=== PATIENT | male | born 1955 | race Two or more races ===

== ENCOUNTER 2017-11-26 23:52 | Emergency (ER) | payer SELFPAY ==
[~2017-11-26] VITALS: Ht 162.6 cm; Wt 61.2 kg
[2017-11-27 00:10] VITALS: BP 144/90
--- NOTE | 2017-11-27 02:03 | NUR ---
CALLED PT FROM WAITING ROOM, PT STATES I WANT TO SLEEP RIGHT NOW. RISK AND BENEFITS EXPLAINED X3. PT REFUSED TO BE SEEN BY MD AT THIS TIME.
--- NOTE | 2017-11-27 02:45 | NUR ---
PT REFUSED TO BE SEEN BY MD. RESTING IN WAITING ROOM.
--- NOTE | 2017-11-27 03:25 | NUR ---
PT REFUSED TO BE SEEN BY MD. RESTING IN WAITING ROOM.
== END 2017-11-27 04:42 | disposition left against medical advice (07) ==
LOC: ER 23:54
DX: F10.229 Alcohol dependence with intoxication, unspecified (principal); Y90.9 Presence of alcohol in blood, level not specified; Z59.0 Homelessness
CPT/HCPCS: 99283; A4606; Z7610

== ENCOUNTER 2019-05-13 21:19 | Inpatient (IN) | payer MEDICAID ==
[~2019-05-13] VITALS: Ht 165.1 cm; Wt 55.8 kg
--- NOTE | 2019-05-13 21:25 | NUR ---
BIB EMS FROM STREET C/O ABD PAIN WITH N/V BLOOD X2 HRS PRESS TENDER SMOKE SIGNAL.
[2019-05-13] MEDS ORDERED: IV NS 0.9% 1,000 ML BAG IV ONE (21:30)
[2019-05-13 21:44] LABS: BASOPHILS % (AUTO) 0.7 % (0.0-2.0); HEMATOCRIT 26 % (39-51); HEMOGLOBIN 7.7 g/dL (13.5-17.5); LYMPHOCYTES # (AUTO) 0.8 /CMM (0.8-4.8); LYMPHOCYTES % (AUTO) 19.2 % (20.0-44.0); MEAN CORPUSCULAR HGB CONC 30 g/dl (31.0-36.0); MEAN CORPUSCULAR VOLUME 67 fL (80-96); MONOCYTES # (AUTO) 0.7 /CMM (0.1-1.30); MONOCYTES % (AUTO) 15.4 % (2.0-12.0); NEUTROPHILS # (AUTO) 2.8 /CMM (1.8-8.9); NEUTROPHILS % (AUTO) 62.7 % (43.0-81.0); PLATELET COUNT (AUTO) 243 /CMM (150-450); WHITE BLOOD COUNT (AUTO) 4.4 K/uL (4.3-11.0)
[2019-05-13 21:51] LABS: CALCIUM, SERUM 8.9 mg/dL (8.5-10.1); CARBON DIOXIDE 25 mmol/L (21-32); CHLORIDE 104 mmol/L (98-107); GLUCOSE 127 mg/dL (74-106); POTASSIUM 3.8 mmol/L (3.5-5.1); SODIUM SERUM 139 mmol/L (136-145); UREA NITROGEN, BLOOD 29 mg/dL (7-18)
[2019-05-13 21:56] LABS: ALANINE AMINOTRANSFERASE 36 U/L (12-78); ALBUMIN 3.7 g/dL (3.4-5.0); ALKALINE PHOSPHATASE 85 U/L (46-116); ASPARTATE AMINOTRANSFERASE 22 U/L (15-37); BILIRUBIN,TOTAL 0.3 mg/dL (0.2-1.0); LIPASE 660 U/L (73-393)
[2019-05-13] MEDS ORDERED: PANTOPRAZOLE 80 MG in IV NS 0.9% 500 ML IV ONE (22:30)
[2019-05-13] MEDS ORDERED: PANTOPRAZOLE 40 MG VIAL ONE (22:30)
[2019-05-13 22:40] LABS: APPEARANCE,URINE Clear (CLEAR); BILIRUBIN,URINE Negative (NEGATIVE); BLOOD, URINE Negative Ery/uL (NEGATIVE); COLOR,URINE Yellow (YELLOW); KETONES,URINE Negative (NEGATIVE); LEUKOCYTE ESTERASE ,URINE Negative (NEGATIVE); NITRITE, URINE Negative (NEGATIVE); PH,URINE 6.5 (5.0-8.0); PROTEIN,URINE Negative (NEGATIVE); UGLUCOSE Negative (NEGATIVE); UROBILINOGEN,URINE 0.2 EU/dL (0.2)
--- NOTE | 2019-05-13 22:55 | NUR ---
PT REPORTED HE IS NOT HAVING ANY MEDICAL PROBLEM AND DOT TAKING ANY HOME MEDS
--- NOTE | 2019-05-13 23:05 | NUR ---
[address] [facility]
--- NOTE | 2019-05-13 23:30 | NUR ---
report given to navid on third floor
[2019-05-13 23:35] VITALS: BP 116/76
--- NOTE | 2019-05-13 23:40 | NUR ---
METALLURGICAL LAB TECHNICIAN NOTES Received patient from ER via gurney, with Protonix IV at 52ml/hr. Admitted to [facility] 327-2 due to Acute Pancreatitis, GIB under the service of Dr. Mcfarland. Admission routine done. Initial skin assessment done, photo taken and documented. Admission routine done. Kept on bed clean, dry and comfortable. Call light within easy reach. On fall and aspiration precautions. Will continue to monitor accordingly. Addendum: 05/14/19 at 0320 by MEGHA ZEPEDA RN Patient admitted under the service of Dr. Gilliam.
--- NOTE | 2019-05-13 23:45 | NUR ---
PT WAS TRANSFERRED TO [facility] IN STABLE CONDITION
[2019-05-14] VITALS (10 sets, daily range): BP systolic 116–162; BP diastolic 64–93
[2019-05-14] MEDS ORDERED: Z GUARD REMEDY 2 OZ OINT TP PRN (00:30)
[2019-05-14] MEDS ORDERED: ONDANSETRON HCL/PF 4 MG/2 ML VIAL IVP PRN (00:30)
[2019-05-14] MEDS ORDERED: MAG HYDROX/AL HYDROX/SIMETH 30 ML UDC PO PRN (00:30)
[2019-05-14] MEDS ORDERED: MAGNESIUM HYDROXIDE 30 ML UDC PO PRN (00:30)
[2019-05-14] MEDS: IV NS 0.9% 1,000 ML IV PRN ×2 (00:39→12:33)
--- NOTE | 2019-05-14 02:20 | NUR ---
RN NOTES Patient for 1 unit PRBC transfusion as order by ER Dr. Cameron. Patient positive for antibodies. Per lab, blood is to be ordered from [place]. Consent signed by the patient.
[2019-05-14] MEDS: MORPHINE SULFATE INJ 2 MG/ML DISP.SYRIN IV PRN ×2 (02:37→12:26)
--- NOTE | 2019-05-14 05:58 | NUR ---
RN NOTES Initial VS taken and recorded. Patient denies any discomfort at this time. Instructed patient on the possible s/sx of blood transfusions reactions, patient verbalized understanding. Initiated BT 1 unit PRBC, verified with co RN Bull. Infuse at 15ml/hr, RN at bedside monitoring the patient.
--- NOTE | 2019-05-14 06:13 | NUR ---
RN NOTES Rechecked VS and recorded. Patient denies any discomfort at this time. No s/sx of discomfort/distress noted. Increased blood transfusion rate accordingly to finish within 4 hrs. Will continue to monitor accordingly.
--- NOTE | 2019-05-14 06:52 | NUR ---
MS RN CLOSING NOTES Patient asleep, easily awaken. On RA, no SOB/respiratory distress noted at this time. With ongoing BT transfusion, patient denies any discomfort at this time; monitored accordingly. No N/V noted within the patient, patient kept on NPO as ordered. All due meds given as ordered. All nursing needs attended. Kept on bed clean, dry and comfortable. On fall and aspiration precautions. Call light within easy reach. Endorsed to the next shift.
[2019-05-14 07:09] LABS: LIPASE 175 U/L (73-393)
[2019-05-14 07:17] LABS: IRON, SERUM 10 ug/dl (50-175); TOTAL IRON BINDING CAPACITY 392 ug/dl (250-450)
--- NOTE | 2019-05-14 08:00 | NUR ---
MS RN AM NOTES Patient asleep, easily awaken. On RA, no SOB/respiratory distress noted at this time. With ongoing BT transfusion, patient denies any discomfort/distress at this time; monitored accordingly. No N/V noted within the patient, patient kept on NPO as ordered. Needs attended. Kept on bed clean, dry and comfortable. On fall and aspiration precautions. Call light within easy reach.
--- NOTE | 2019-05-14 09:50 | NUR ---
COMPLETED BLOOD TRANSFUSION OF 1 UNIT PRBC WITH NO ADVERSE REACTION. WITH STABLE V/S. BP 142/92 HR 62 RR 18 T98.8 O2 SAT 98%. WILL CONTINUE TO MONITOR.
--- NOTE | 2019-05-14 11:00 | NUR ---
LAB CALLED REPORTING HGB/HCT 6.11/05.EXPLAINED TO THE LAB THAT THIS HGB/HCT CRITICAL VALUE RESULT IS NOT ACCURATE BECAUSE BLOOD TRANSFUSION JUST STARTED AT 0600 THIS MORNING. INSTRUCTED LAB TO REDRAW IT.PLACED A NEW ORDER OF HGB/HCT TO REDRAW HGB/HCT.
[2019-05-14] MEDS ORDERED: OCTREOTIDE 500 MCG in IV NS 0.9% 99 ML IV PRN (11:30)
[2019-05-14 11:35] LABS: BASOPHILS % (AUTO) 0.9 % (0.0-2.0); EOSINOPHILS % (AUTO) 2.4 % (0.0-6.0); HEMATOCRIT 24 % (39-51); LYMPHOCYTES # (AUTO) 1.1 /CMM (0.8-4.8); LYMPHOCYTES % (AUTO) 28.4 % (20.0-44.0); MEAN CORPUSCULAR HGB CONC 29 g/dl (31.0-36.0); MEAN CORPUSCULAR VOLUME 66 fL (80-96); MONOCYTES # (AUTO) 0.7 /CMM (0.1-1.30); MONOCYTES % (AUTO) 18.3 % (2.0-12.0); NEUTROPHILS # (AUTO) 1.9 /CMM (1.8-8.9); PLATELET COUNT (AUTO) 212 /CMM (150-450); RED BLOOD CELL COUNT(AUTO) 3.56 MIL/uL (4.5-6.0); WHITE BLOOD COUNT (AUTO) 3.8 K/uL (4.3-11.0)
[2019-05-14 11:59] LABS: HEMOGLOBIN 6.9 g/dL (13.5-17.5)
--- NOTE | 2019-05-14 12:29 | NUR ---
FERLECITT IV CAN BE ADMINISTERED EARLIER THAN 1400 PER PHARMACY.
[2019-05-14 12:50] LABS: LYMPHOCYTES % (MANUAL) 35 % (16-48); MONOCYTES % (MANUAL) 5 % (0-11.0); NEUTROPHILS % (MANUAL) 48 (42-76); REACTIVE LYMPHOCYTES 12 % (0-0)
--- NOTE | 2019-05-14 13:15 | NUR ---
PT'S LATEST HGB/HCT(REDRAW) .
[2019-05-14 13:25] LABS: HEMOGLOBIN 8.5 g/dL (13.5-17.5)
--- NOTE | 2019-05-14 13:48 | NUR ---
SOCIAL SERVICE ASSESSMENT: SW met with pt at bedside after RN called SW to inform her pt was refusing treatment and wanted to leave AM. Pt states he is currently homeless and hasn't been given food and is hungry and that is why he wants to leave. SW explained that he has a test that will be done at 5:00pm on this present day and needs to be fasting. SW encouraged pt to accept treatment and cooperate. Pt stated that he will cooperate and accept placement. Pt states he has been homeless for 3 years and currently dwells on [address] and [address]. Pt states that he was kicked out of his 's house after she by her son and has been on the streets since then. He states he has 7 children whom he does not have any relationship with. Pt denies illicit drug use and also denies alcohol use. Pt states he is not an alcoholic although pt reported to MD that he drinks daily and also reported that on the day of his admission he had been drinking. Pt appears disheveled and unkempt with scratches on his face and dirt on his hands. Pt appears alert and oriented x3 and is hyperverbal. Pt denies suicidal/homicidal ideation and denies visual/auditory hallucinations. Pt states he wishes to return to his place of dwelling on [facility] [address] in [place]. MIKE placed homeless resources in the pts chart. Per RN, pt does not have a discharge order on this present day.
[2019-05-14] MEDS ORDERED: SOD FERRIC GLUC 125 MG in IV NS 0.9% 100 ML IV SCH (14:00)
[2019-05-14] MEDS ORDERED: hydrALAZINE HCL IV 20 MG VIAL IV PRN (16:00)
[2019-05-14] MEDS ORDERED: ANESTHESIA TRAY IN PYXIS 1 EA TRAY MC ONE (17:19)
--- NOTE | 2019-05-14 18:21 | NUR ---
PT JUST CAME BACK FROM [facility]. S/P EGD DX HIATAL HERNIA. WITH STABLE V/S. BP 125/63 HR 73 RR 18 T 97.8. O2 SAT 98%.RA. DENIES PAIN OR DISTRESS JUST WANTING TO EAT HIS DINNER.ORDERED REGULAR TRAY.
--- NOTE | 2019-05-14 19:45 | NUR ---
MS RN NOTES PATIENT IN BED, AWAKE, ALERT AND ORIENTED X 3. BREATHING EVEN AND UNLABORED ON ROOM AIR. SHOWS NO SIGNS OF ACUTE RESPIRATORY DISTRESS. NO ACUTE PAIN. IV ON RAC 18G RUNNING NS AT 125ML/HR. SHOWS NO SIGNS OF INFILTRATION, NO REDNESS. ITS CLEAN DRY AND INTACT. SAFETY PRECAUTIONS IN PLACE. BED IN LOWEST POSITIVE, LOCKED, AND CALL LIGHT KEPT WITHIN REACH.
[2019-05-15 06:28] LABS: BASOPHILS % (AUTO) 0.4 % (0.0-2.0); EOSINOPHILS % (AUTO) 2.1 % (0.0-6.0); HEMATOCRIT 31 % (39-51); HEMOGLOBIN 9.2 g/dL (13.5-17.5); LYMPHOCYTES # (AUTO) 0.9 /CMM (0.8-4.8); LYMPHOCYTES % (AUTO) 15.8 % (20.0-44.0); MEAN CORPUSCULAR HGB CONC 30 g/dl (31.0-36.0); MEAN CORPUSCULAR VOLUME 68 fL (80-96); MONOCYTES # (AUTO) 0.5 /CMM (0.1-1.30); MONOCYTES % (AUTO) 9.7 % (2.0-12.0); PLATELET COUNT (AUTO) 247 /CMM (150-450); RED BLOOD CELL COUNT(AUTO) 4.56 MIL/uL (4.5-6.0); WHITE BLOOD COUNT (AUTO) 5.6 K/uL (4.3-11.0)
--- NOTE | 2019-05-15 06:35 | NUR ---
MS RN NOTES PATIENT IN BED, SLEPT THROUGHOUT NIGHT, ALERT AND ORIENTED X 3. BREATHING EVEN AND UNLABORED ON ROOM AIR. SHOWS NO SIGNS OF ACUTE RESPIRATORY DISTRESS. NO ACUTE PAIN. IV ON RAC 18G RUNNING NS AT 125ML/HR. SHOWS NO SIGNS OF INFILTRATION, NO REDNESS. ITS CLEAN DRY AND INTACT. ALL DUE MEDICATIONS GIVEN. SAFETY PRECAUTIONS IN PLACE. BED IN LOWEST POSITION, LOCKED, AND CALL LIGHT KEPT WITHIN REACH. WILL ENDORSE TO ONCOMING NURSE.
[2019-05-15 07:04] LABS: ALBUMIN 3.2 g/dL (3.4-5.0); BILIRUBIN,TOTAL 0.3 mg/dL (0.2-1.0); CALCIUM, SERUM 8.4 mg/dL (8.5-10.1); CREATININE 0.9 mg/dL (0.6-1.3); MAGNESIUM 2.2 mg/dL (1.8-2.4); PHOSPHORUS 3.7 mg/dL (2.5-4.9); POTASSIUM 4.3 mmol/L (3.5-5.1); TOTAL PROTEIN, SERUM 7.4 g/dL (6.4-8.2)
[2019-05-15 08:00] VITALS: BP 134/81
--- NOTE | 2019-05-15 08:00 | NUR ---
MS PRAKASH AM NOTES Patient awake. On RA, no SOB/respiratory distress noted at this time. With ongoing BT transfusion, patient denies any discomfort/distress at this time; monitored accordingly. No N/V noted within the patient, patient kept on NPO as ordered. Needs attended. Kept on bed clean, dry and comfortable. On fall and aspiration precautions. Call light within easy reach. Addendum: 05/15/19 at 0936 by PETROS HOWE RN BT COMPLETED YESTERDAY
--- NOTE | 2019-05-15 12:00 | NUR ---
PT WAS SEEN BY CLEANER SIGNS YESTERDAY: Pt denies suicidal/homicidal ideation and denies visual/auditory hallucinations. Pt states he wishes to return to his place of dwelling on [address] in [place]. SW placed homeless resources in the pts chart.
--- NOTE | 2019-05-15 12:00 | NUR ---
PT REFUSED TO HAVE PHOTO OF HIS LEFT EYEBROW TAKEN.
--- NOTE | 2019-05-15 12:54 | NUR ---
PATIENT IS AAOX3, ADMITTED FOR GI BLEED. PATIENT IS HOMELESS. PATIENT WILL NEED TO BE SEEN BY MIKE TO GIVE RESOURCES. PATIENT IS INDEPENDENT WITH ADLS AND AMBULATION.PER MD PATIENT IS STABLE FOR DISCHARGE. PATIENT IS AWARE AND AGREEABLE WITH DC PLAN. PATIENT WILL RECEIVE A TAP CARD. NO OTHER DC NEEDS AT THIS TIME. Addendum: 05/15/19 at 1419 by PETROS HOWE RN PT WAS SEEN BY MATTHEW MCKEON YESTERDAY AND GAVE A COPY OF THE RESOURCES
[2019-05-15] MEDS ORDERED: ACETAMINOPHEN 325 MG TABLET PO PRN (14:00)
--- NOTE | 2019-05-15 14:30 | NUR ---
DISCHARGED PT HOME WITH STABLE V/S. IV H/L TO RT AC WITH NO BLEEDING OR SWELLING NOTED ON THE SITE.PT REFUSED PHOTO OF HIS LT FOREHEAD ABRASION TO BE TAKEN.DENIES ANY PAIN OR DISTRESS.SIGNED THE HOMELESS WAIVER FORM/.PT WANTS TO RETURN TO THE PLACE WHERE HE USED TO STAY. PT WAS ALL DRESSED UP FROM -HEAD TO TOE COMFORTABLY WITH SHOES. Addendum: 05/15/19 at 1436 by PETROS HOWE RN PROVIDED TAP CARD FOR HIS RIDE.PT HAS A LOT OF DEMANDS LIKE DOUBLE PORTION FOOD TRAY AND BOTTLE OF MVI PRIOR TO BEING DC.
== END 2019-05-15 14:30 | disposition home or self-care (01) | DRG 197 ==
LOC: ER 21:25 → MED 23:18 → MEDSG2 05-14 13:53
PROVIDERS: ADMIT Internal Medicine; ATTEND Internal Medicine
PROC: 30233P1 Transfusion of Nonautologous Frozen Red Cells into Peripheral Vein, Percutaneous Approach (ICD-10-PCS; principal; 2019-05-14)
PROC: 0W3P8ZZ Control Bleeding in Gastrointestinal Tract, Via Natural or Artificial Opening Endoscopic (ICD-10-PCS; principal; 2019-05-14)
DX: Q27.33 Arteriovenous malformation of digestive system vessel (principal); N17.0 Acute kidney failure with tubular necrosis; K85.90 Acute pancreatitis without necrosis or infection, unspecified; K74.60 Unspecified cirrhosis of liver; F10.10 Alcohol abuse, uncomplicated; K44.9 Diaphragmatic hernia without obstruction or gangrene; D62 Acute posthemorrhagic anemia
CPT/HCPCS: 36415; 71045-TC; 73130-TC; 76700-TC; 80048-TC; 80053-TC; 80061-TC; 80076-TC; 81000-TC; 83540-TC; 83690-TC; 83735-TC; 84100-TC; 84484-TC; 85025-TC; 85027-TC; 85730-TC; 86850-TC; 86921-TC; 87081-TC; 97116-TC; 97530-TC; C9113; G0378; J2270; J2354; J2916; J7030; J7040; P9016-BL

== ENCOUNTER 2020-05-14 17:26 | Inpatient (IN) | payer MEDICAID ==
[~2020-05-14] VITALS: Ht 162.6 cm; Wt 54.9 kg
--- NOTE | 2020-05-14 19:27 | NUR ---
SEGMENT PRODUCER NOTE PT 56 YEARS OLD MALE CAME VIA GURNEY TO ROOM FROM [facility]. REPORT RECEIVED FROM AMBULANCE PERSONAL. PT IS A/0 X 4 TURKMEN SPEAKING. NO SOB, NO DISTRESS OR DISCOMFORT NOTED. DENIES PAIN. ON TELE SR HR 84. SKIN INTACT. PT ABLE AMBULATE TO BATHROOM WITH A STEADY GAIT. LFA #20 G AND RAC #20 G SL INTACT AND PATENT. ORIENTED THE PT TO HIS ROOM. DR DANA VASQUEZ FOR ADMITTING ORDERS. SIDE RAILS UP X 2 AND CALL LIGHT WITHIN REACH. VSS. CONTINUE TO MONITOR HIM. Addendum: 05/14/20 at 2031 by JARRETT MOTT RN ADMITTING IS ROOSEVELT LOWE INFORMED HIM REGARDING PT'S ADMITTING ORDERS.
[2020-05-14 19:30] VITALS: BP 132/86
[2020-05-14 20:00] VITALS: BP 132/86
[2020-05-14] MEDS ORDERED: ZOLPIDEM TARTRATE 5 MG TABLET PO PRN (21:00)
[2020-05-14] MEDS ORDERED: Z GUARD REMEDY 2 OZ OINT TP PRN (21:00)
[2020-05-14] MEDS ORDERED: ONDANSETRON HCL/PF 4 MG/2 ML VIAL IVP PRN (21:00)
[2020-05-14] MEDS: IV NS 0.9% 1,000 ML IV PRN (21:44)
--- NOTE | 2020-05-14 22:19 | NUR ---
CREDIT OFFICE MANAGER NOTE DNP VIDAL LOWE GAVE ADMITTING ORDERS, DX WITH CHEST PAIN. ORDERS NOTED AND CARRIED OUT. SNACKS GIVEN PT BECAUSE HE WAS VERY HUNGRY.
[2020-05-15] VITALS (8 sets, daily range): BP systolic 115–133; BP diastolic 57–85
[2020-05-15 04:20] LABS: BASOPHILS % (AUTO) 0.7 % (0.0-2.0); EOSINOPHILS % (AUTO) 2.6 % (0.0-6.0); HEMATOCRIT 26 % (39-51); HEMOGLOBIN 7.7 g/dL (13.5-17.5); LYMPHOCYTES # (AUTO) 1.1 /CMM (0.8-4.8); LYMPHOCYTES % (AUTO) 17.9 % (20.0-44.0); MEAN CORPUSCULAR HGB CONC 29 g/dl (31.0-36.0); MEAN CORPUSCULAR VOLUME 64 fL (80-96); MONOCYTES # (AUTO) 0.6 /CMM (0.1-1.30); MONOCYTES % (AUTO) 9.8 % (2.0-12.0); NEUTROPHILS # (AUTO) 4.1 /CMM (1.8-8.9); PLATELET COUNT (AUTO) 339 /CMM (150-450); RED BLOOD CELL COUNT(AUTO) 4.09 MIL/uL (4.5-6.0); WHITE BLOOD COUNT (AUTO) 5.9 K/uL (4.3-11.0)
[2020-05-15 04:37] LABS: ALBUMIN 2.5 g/dL (3.4-5.0); BILIRUBIN,TOTAL 0.3 mg/dL (0.2-1.0); CALCIUM, SERUM 7.9 mg/dL (8.5-10.1); PHOSPHORUS 3.1 mg/dL (2.5-4.9); POTASSIUM 4.1 mmol/L (3.5-5.1); TOTAL PROTEIN, SERUM 6.8 g/dL (6.4-8.2)
[2020-05-15 04:47] LABS: THYROID STIMULATING HORMONE 1.291 uIU/mL (0.358-3.74)
--- NOTE | 2020-05-15 06:26 | NUR ---
MANAGER DESKTOP NOTE PT IN BED AWAKE. SLEPT WELL. NO DISTRESS OR DISCOMFORT NOTED. DENIES PAIN. IVF NS @ 75 ML/HR INFUSING WELL, NO S/S OF INFILTRATION NOTED. ON TELE SR HR 72. KEPT HIM DRY AND CLEAN. ALL NEEDS ATTENDED. WILL ENDORSE TO DAY SHIFT NURSE FOR CONTINUE TO CARE.
--- NOTE | 2020-05-15 07:31 | NUR ---
CAPTION WRITER NOTE PATIENT IS IN BED IN NO ACUTE DISTRESS, PATIENT IS IN NO ACUTE DISTRESS. PATIENT IS ON ROOM AIR TOLERATING WELL NO SOB NOTED. PATIENT IS ON TELE MONITOR READING SR 64. SAFETY PRECAUTIONS ARE IN PLACE, BED IN THE LOWEST POSITION WITH SIDE RAILS UP, CALL LIGHT WITHIN REACH. WILL CONTINUE TO MONITOR CLOSELY THROUGHOUT OUT THE SHIFT.
[2020-05-15] MEDS ORDERED: ANESTHESIA TRAY IN PYXIS 1 EA TRAY MC ONE (16:33)
--- NOTE | 2020-05-15 18:44 | NUR ---
VASCULAR SURGEON CLOSING NOTE PATIENT IS IN BED IN NO ACUTE DISTRESS, PATIENT IS IN NO ACUTE DISTRESS. PATIENT IS ON ROOM AIR TOLERATING WELL NO SOB NOTED. PATIENT IS ON TELE MONITOR READING SR 78. SAFETY PRECAUTIONS ARE IN PLACE, BED IN THE LOWEST POSITION WITH SIDE RAILS UP, CALL LIGHT WITHIN REACH. ENDORSE PATIENT TO SHROUDMAN NURSE FOR FRIEDA.
--- NOTE | 2020-05-15 19:30 | NUR ---
TELE/RN OPENING NOTES RECEIVED PATIENT IN BED RESTING. PATIENT IS ALERT AND ORIENTED X 4. PATIENTS BREATHING IS EVEN AND UNLABORED. NO SIGNS OF SOB OR RESPIRATORY DISTRESS NOTED. PATIENT STATES NO PAIN AT THIS TIME. TELE READING SR. SAFETY MEASURES ARE IN PLACED, BED IS LOCKED AND PLACED IN THE LOW POSITION, SIDE RAILS UP X 2, CALL LIGHT IS WITHIN REACH. WILL CONTINUE WITH PATIENT PLAN OF CARE.
[2020-05-16] VITALS: BP 126/77
[2020-05-16 04:00] VITALS: BP 131/79
[2020-05-16 06:12] LABS: BASOPHILS % (AUTO) 0.6 % (0.0-2.0); HEMATOCRIT 26 % (39-51); HEMOGLOBIN 7.7 g/dL (13.5-17.5); LYMPHOCYTES # (AUTO) 1.2 /CMM (0.8-4.8); LYMPHOCYTES % (AUTO) 15.3 % (20.0-44.0); MEAN CORPUSCULAR HGB CONC 29 g/dl (31.0-36.0); MEAN CORPUSCULAR VOLUME 65 fL (80-96); MONOCYTES # (AUTO) 0.7 /CMM (0.1-1.30); MONOCYTES % (AUTO) 8.7 % (2.0-12.0); NEUTROPHILS # (AUTO) 5.5 /CMM (1.8-8.9); NEUTROPHILS % (AUTO) 72.4 % (43.0-81.0); PLATELET COUNT (AUTO) 318 /CMM (150-450); RED BLOOD CELL COUNT(AUTO) 4.02 MIL/uL (4.5-6.0); WHITE BLOOD COUNT (AUTO) 7.5 K/uL (4.3-11.0)
[2020-05-16 06:35] LABS: ALBUMIN 2.6 g/dL (3.4-5.0); BILIRUBIN,TOTAL 0.2 mg/dL (0.2-1.0); CALCIUM, SERUM 7.8 mg/dL (8.5-10.1); CREATININE 0.7 mg/dL (0.6-1.3); MAGNESIUM 1.7 mg/dL (1.8-2.4); PHOSPHORUS 2.8 mg/dL (2.5-4.9); POTASSIUM 3.9 mmol/L (3.5-5.1); TOTAL PROTEIN, SERUM 6.8 g/dL (6.4-8.2)
--- NOTE | 2020-05-16 06:35 | NUR ---
TELE/RN CLOSING NOTES PATIENT IN BED SLEEPING EASY TO AROUSE. PATIENT IS ALERT AND ORIENTED X 4. PATIENTS BREATHING IS EVEN AND UNLABORED. NO SIGNS OF SOB OR RESPIRATORY DISTRESS NOTED. PATIENT STATES NO PAIN AT THIS TIME. TELE READING SR 70S. ALL NEEDS HAVE BEEN MET DURING SHIFT. SAFETY MEASURES ARE IN PLACED, BED IS LOCKED AND PLACED IN THE LOW POSITION, SIDE RAILS UP X 2, CALL LIGHT IS WITHIN REACH. WILL ENDORSE CARE TO DAY SHIFT NURSE.
--- NOTE | 2020-05-16 07:21 | NUR ---
RN OPENING NOTE PT IS AWAKE IN BED, EATING BREAKFAST. A/O X3 AND PRIMARILY SERBIAN SPEAKING. UNDERSTANDS SOME KOREAN. ABLE TO VOICE NEEDS. NO COMPLAINT OF PAIN OR NAUSEA. CURRENTLY ON RA WITH NO SOB OR RESPIRATORY DISTRESS PRESENT. O2 SAT >95%. SINUS RHYTHM RECORDED ON EXTERNAL MONITOR. SELF AMBULATORY WITH BATHROOM PRIVILEGES. SKIN IS INTACT. NO EDEMA PRESENT. HL PRESENT ON R AC, 20G. SAFETY MEASURES IN PLACE. SIDE RAILS RAISED. BED LOWERED. CALL LIGHT WITHIN REACH. WILL CONTINUE TO MONITOR.
[2020-05-16 08:00] VITALS: BP 129/68
[2020-05-16 08:45] LABS: EOSINOPHILS % (MANUAL) 2 % (0-4); LYMPHOCYTES % (MANUAL) 18 % (16-48); MONOCYTES % (MANUAL) 7 % (0-11.0); NEUTROPHILS % (MANUAL) 73 (42-76)
[2020-05-16] MEDS: Magnesium 1GM/D5W 100ML PREMIX 100 ML IV SCH ×2 (11:19→13:12)
[2020-05-16] MEDS: ACETAMINOPHEN 325 MG TABLET PO PRN (12:46)
--- NOTE | 2020-05-16 12:48 | NUR ---
RN MEDICINE NOTE PATIENT REPORTS PAIN 2/10 ON L FOREARM. IV MAGNESIUM RUNNING. TYLENOL OFFERED AND GIVEN. WILL CONTINUE TO MONITOR.
[2020-05-16 16:00] VITALS: BP 128/80
--- NOTE | 2020-05-16 18:16 | NUR ---
RN CLOSING NOTE PT IS AWAKE IN BED RESTING. A/O X3 AND PRIMARILY SAMI SPEAKING. UNDERSTANDS SOME MAURITANIAN. ABLE TO VOICE NEEDS. NO COMPLAINT OF PAIN OR NAUSEA. CURRENTLY ON RA WITH NO SOB OR RESPIRATORY DISTRESS PRESENT. O2 SAT >95%. SELF AMBULATORY WITH BATHROOM PRIVILEGES. SKIN IS INTACT. NO EDEMA PRESENT. HL PRESENT ON R AC, 20G. ROUTINE MEDS GIVEN. SAFETY MEASURES IN PLACE. SIDE RAILS RAISED. BED LOWERED. CALL LIGHT WITHIN REACH. REPORT TO BE GIVEN TO NIGHT NURSE FOR FRIEDA.
--- NOTE | 2020-05-16 19:30 | NUR ---
MS/RN OPENING NOTES RECEIVED PATIENT IN BED RESTING. PATIENT IS ALERT AND ORIENTED X 4. PATIENTS BREATHING IS EVEN AND UNLABORED. NO SIGNS OF SOB OR RESPIRATORY DISTRESS NOTED. PATIENT STATES NO PAIN AT THIS TIME. SAFETY MEASURES ARE IN PLACED, BED IS LOCKED AND PLACED IN THE LOW POSITION, SIDE RAILS UP X 2, CALL LIGHT IS WITHIN REACH. WILL CONTINUE WITH PATIENT PLAN OF CARE.
[2020-05-16 20:00] VITALS: BP 112/74
[2020-05-16 20:01] LABS: OCCULT BLOOD STOOL NEGATIVE (NEGATIVE)
[2020-05-17 05:49] LABS: BASOPHILS # (AUTO) 0.1 /CMM (0.0-0.2); BASOPHILS % (AUTO) 0.7 % (0.0-2.0); EOSINOPHILS % (AUTO) 3.3 % (0.0-6.0); HEMATOCRIT 25 % (39-51); HEMOGLOBIN 7.4 g/dL (13.5-17.5); LYMPHOCYTES # (AUTO) 1.2 /CMM (0.8-4.8); LYMPHOCYTES % (AUTO) 16.4 % (20.0-44.0); MEAN CORPUSCULAR HGB CONC 29 g/dl (31.0-36.0); MEAN CORPUSCULAR VOLUME 65 fL (80-96); MONOCYTES # (AUTO) 0.7 /CMM (0.1-1.30); MONOCYTES % (AUTO) 10.1 % (2.0-12.0); NEUTROPHILS # (AUTO) 5.1 /CMM (1.8-8.9); NEUTROPHILS % (AUTO) 69.5 % (43.0-81.0); PLATELET COUNT (AUTO) 288 /CMM (150-450); RED BLOOD CELL COUNT(AUTO) 3.93 MIL/uL (4.5-6.0); WHITE BLOOD COUNT (AUTO) 7.3 K/uL (4.3-11.0)
[2020-05-17 06:13] LABS: CALCIUM, SERUM 7.9 mg/dL (8.5-10.1); CREATININE 0.7 mg/dL (0.6-1.3); MAGNESIUM 2.1 mg/dL (1.8-2.4); POTASSIUM 4.2 mmol/L (3.5-5.1)
--- NOTE | 2020-05-17 06:35 | NUR ---
MS/RN CLOSING NOTES PATIENT IN BED SLEEPING EASY TO AROUSE. PATIENT IS ALERT AND ORIENTED X 4. PATIENTS BREATHING IS EVEN AND UNLABORED. NO SIGNS OF SOB OR RESPIRATORY DISTRESS NOTED. PATIENT STATES NO PAIN AT THIS TIME. ALL NEEDS HAVE BEEN MET DURING SHIFT. SAFETY MEASURES ARE IN PLACED, BED IS LOCKED AND PLACED IN THE LOW POSITION, SIDE RAILS UP X 2, CALL LIGHT IS WITHIN REACH. WILL ENDORSE CARE TO DAY SHIFT NURSE.
--- NOTE | 2020-05-17 07:42 | NUR ---
MS RN OPENING NOTE PATIENT IS IN BED IN NO ACUTE DISTRESS, PATIENT IS IN NO ACUTE DISTRESS. PATIENT IS ON ROOM AIR TOLERATING WELL NO SOB NOTED. SAFETY PRECAUTIONS ARE IN PLACE, BED IN THE LOWEST POSITION WITH SIDE RAILS UP, CALL LIGHT WITHIN REACH. WILL CONTINUE TO MONITOR CLOSELY THROUGHOUT OUT THE SHIFT.
[2020-05-17 08:00] VITALS: BP 124/67
[2020-05-17] MEDS: ACETAMINOPHEN 325 MG TABLET PO PRN (14:43)
--- NOTE | 2020-05-17 15:31 | NUR ---
office services specialist: office services specialist consult requested for homelessness. SW received request for consult and will follow up at a later time.
[2020-05-17 16:00] VITALS: BP 105/64
--- NOTE | 2020-05-17 18:55 | NUR ---
MS RN CLOSING NOTE PATIENT IS IN BED IN NO ACUTE DISTRESS, PATIENT IS IN NO ACUTE DISTRESS. PATIENT IS ON ROOM AIR TOLERATING WELL NO SOB NOTED. CASE MANAGEMENT WILL WORK ON PATIENTS DISCHARGE. SAFETY PRECAUTIONS ARE IN PLACE, BED IN THE LOWEST POSITION WITH SIDE RAILS UP, CALL LIGHT WITHIN REACH. ENDORSE PATIENT TO PRESIDENT AND CHIEF OPERATING OFFICER NURSE FOR FRIEDA.
--- NOTE | 2020-05-17 19:35 | NUR ---
MSRN RESTING COMFORTABLY DENIES ANY DISCOMFORTS OF THIS TIME. NO NEEDS MADE. SAFETY PRECAUTIONS EMPHASIZED, APPEARS TO UNDERSTAND.REMINDED TO CALL STAFF FOR ANY ASSISTANCE OR FURTHER DISCOMFORTS.. CALL LIGHT WITHIN REACH.
[2020-05-17 20:00] VITALS: BP 107/57
--- NOTE | 2020-05-17 21:00 | NUR ---
MSRN RECEIVED ORDERS FOR EGD/COLONOSCOPY TOMORRW. HAVE MULTILITH OPERATOR TRANSLATE FOR PATIENT, REGARDING PROCEDURE. PER PATIENT SPOKE TO MD REGARDING PROCEDURE. AGREED AND SIGNED CONSENT. NOTIFIED HOT DIP GALVANIZER . DR. CABALLERO O CALL RECONCILIATION CLERK REGARDING TIME OF PROCEDURE.
[2020-05-17] MEDS ORDERED: PEG 3350/NA SULF,BICARB,CL/KCL 4,000 ML BOTTLE PO ONE (21:30)
[2020-05-17] MEDS ORDERED: SORBITOL SOLUTION 30 ML ONE ×2 (21:34→21:53)
[2020-05-17] MEDS ORDERED: PEG 3350/NA SULF,BICARB,CL/KCL 4,000 ML BOTTLE ONE (21:35)
--- NOTE | 2020-05-17 22:00 | NUR ---
MSRN REFUSED TO TAKE GOLYTLY OF THIS TIME. STATED WILL TAKE IN THE MORNING INSTEAD. WILL KEEP PATIENT NPO POST MIDNIGHT. NOTIFIED DR. CABALLERO.
--- NOTE | 2020-05-18 03:41 | NUR ---
MSRN UPSET FROM BEING NPO. AWARE FOR PROCEDURE TODAY.
[2020-05-18 05:04] LABS: BILIRUBIN,URINE NEGATIVE (NEGATIVE); COLOR,URINE YELLOW (YELLOW); LEUKOCYTE ESTERASE ,URINE NEGATIVE (NEGATIVE); NITRITE, URINE NEGATIVE (NEGATIVE); PROTEIN,URINE NEGATIVE (NEGATIVE); UGLUCOSE NEGATIVE (NEGATIVE); UROBILINOGEN,URINE 0.2 EU/dL (0.2)
[2020-05-18 05:57] LABS: BASOPHILS # (AUTO) 0.1 /CMM (0.0-0.2); EOSINOPHILS % (AUTO) 4.3 % (0.0-6.0); HEMATOCRIT 25 % (39-51); HEMOGLOBIN 7.1 g/dL (13.5-17.5); LYMPHOCYTES # (AUTO) 1.4 /CMM (0.8-4.8); MEAN CORPUSCULAR HGB CONC 29 g/dl (31.0-36.0); MEAN CORPUSCULAR VOLUME 65 fL (80-96); MONOCYTES # (AUTO) 0.7 /CMM (0.1-1.30); MONOCYTES % (AUTO) 11.5 % (2.0-12.0); NEUTROPHILS # (AUTO) 3.6 /CMM (1.8-8.9); NEUTROPHILS % (AUTO) 60.2 % (43.0-81.0); PLATELET COUNT (AUTO) 276 /CMM (150-450); RED BLOOD CELL COUNT(AUTO) 3.82 MIL/uL (4.5-6.0); WHITE BLOOD COUNT (AUTO) 5.9 K/uL (4.3-11.0)
--- NOTE | 2020-05-18 06:42 | NUR ---
MSRN ASLEEP FOR NOW.
[2020-05-18 06:55] LABS: CALCIUM, SERUM 7.9 mg/dL (8.5-10.1); CREATININE 0.7 mg/dL (0.6-1.3); POTASSIUM 3.9 mmol/L (3.5-5.1)
[2020-05-18] MEDS: IV NS 0.9% 1,000 ML IV PRN (07:01)
--- NOTE | 2020-05-18 07:45 | NUR ---
MS RN RECEIVED PATIENT IN BED, AWAKE, ALERT, ORIENTED X4, VERBALLY RESPONSIVE, ABLE TO MAKE NEEDS KNOWN. NO COMPLAINT OF PAIN/DISCOMFORT AT THIS TIME. BREATHING EVEN AND NON-LABORED. IV SITE ON LEFT FOREARM NOTED, INTACT, PATENT, NO S/S OF INFILTRATION. ALL NEEDS MET AND ATTENDED. CALL LIGHT PLACED WITHIN REACH.
[2020-05-18 08:00] VITALS: BP 133/70
[2020-05-18] MEDS ORDERED: SORBITOL SOLUTION 30 ML PO SCH (08:00)
--- NOTE | 2020-05-18 09:00 | NUR ---
ms rn called or,what time they will do egd, and notify that patient refused to take golytely.
--- NOTE | 2020-05-18 10:00 | NUR ---
ms rn patient insisting to go home at this time, and can not wait for the procedure.
--- NOTE | 2020-05-18 10:50 | NUR ---
ms rn patient went ama, refused to sign homeless waiver form. charge nurse notified.
--- NOTE | 2020-05-18 15:08 | NUR ---
SS Consult: SS Consult requested for homelessness. SW notified by pt's nurse that he left AMA around 10: 50 am.
== END 2020-05-18 10:50 | disposition left against medical advice (07) | DRG 253 ==
LOC: TELE 19:18 → MED 05-16 08:58
PROVIDERS: ADMIT Nurse Practitioner Acute Care
DX: K92.2 Gastrointestinal hemorrhage, unspecified (principal); I42.9 Cardiomyopathy, unspecified; Z59.0 Homelessness; F15.10 Other stimulant abuse, uncomplicated; F17.200 Nicotine dependence, unspecified, uncomplicated; D50.9 Iron deficiency anemia, unspecified
CPT/HCPCS: 36415; 71045-TC; 80048-TC; 80053-TC; 80061-TC; 82272-TC; 83540-TC; 83735-TC; 84100-TC; 84443-TC; 84484-TC; 85025-TC; 85610-TC; 85730-TC; 87081-TC; 93307-TC; G0378; J3475; J7030

== ENCOUNTER 2020-09-01 14:27 | Inpatient (IN) | payer MEDICAID, OTHER ==
[~2020-09-01] VITALS: Ht 165.1 cm; Wt 51.7 kg
--- NOTE | 2020-09-01 14:38 | NUR ---
[id number], C/O THROAT DISCOMFORT S/P CHOKED ON A PIECE OF CHICKEN. SPO2 98% ON ROOM AIR, NO RESP. DISTRESS. PATIENT A/OX4, BREATHING EVEN AND UNLABORED, NO SOB NOTED, SPITTING FREQUENTLY. INFORMED DR. DA SILVA.
--- NOTE | 2020-09-01 14:45 | NUR ---
DR. DA SILVA AT BEDSIDE FOR EVAL
[2020-09-01] MEDS ORDERED: ONDANSETRON HCL/PF 4 MG/2 ML VIAL ONE (14:46)
[2020-09-01] MEDS ORDERED: ONDANSETRON HCL/PF - ER 4 MG/2 ML VIAL IV ONE (15:00)
[2020-09-01 15:02] LABS: BASOPHILS # (AUTO) 0.1 K/uL (0.0-0.2); BASOPHILS % (AUTO) 1.1 % (0.0-2.0); EOSINOPHILS % (AUTO) 3.7 % (0.0-6.0); HEMATOCRIT 26 % (39-51); HEMOGLOBIN 7.3 g/dL (13.5-17.5); LYMPHOCYTES % (AUTO) 21.3 % (20.0-44.0); MEAN CORPUSCULAR HGB CONC 28 g/dl (31.0-36.0); MEAN CORPUSCULAR VOLUME 63 fL (80-96); MONOCYTES # (AUTO) 0.6 K/uL (0.1-1.30); MONOCYTES % (AUTO) 11.8 % (2.0-12.0); NEUTROPHILS % (AUTO) 62.1 % (43.0-81.0); PLATELET COUNT (AUTO) 325 K/uL (150-450); RED BLOOD CELL COUNT(AUTO) 4.13 MIL/uL (4.5-6.0); WHITE BLOOD COUNT (AUTO) 4.8 K/uL (4.3-11.0)
[2020-09-01 15:09] LABS: CREATININE 0.8 mg/dL (0.6-1.3); POTASSIUM 3.4 mmol/L (3.5-5.1)
--- NOTE | 2020-09-01 15:12 | NUR ---
PATIENT PROVIDED WITH A URINAL.
[2020-09-01 15:14] LABS: ALBUMIN 3.1 g/dL (3.4-5.0); BILIRUBIN,DIRECT 0.1 mg/dL (0.0-0.2); BILIRUBIN,TOTAL 0.3 mg/dL (0.2-1.0); TOTAL PROTEIN, SERUM 7.3 g/dL (6.4-8.2)
--- NOTE | 2020-09-01 16:24 | NUR ---
PATIENT BREATHING REMAINS THE SAME. NO RESPIRATORY DISTRESS NOTED. PATIENT'S A/OX3, KEPT COMFORTABLE. XR RESULT STILL PENDING.
--- NOTE | 2020-09-01 16:35 | NUR ---
PATIENT ASLEEP, BREATHING NORMALLY. XRAY RESULT CAME BACK AND INFORMED DR. DA SILVA.
--- NOTE | 2020-09-01 16:40 | NUR ---
PATIENT UNABLE TO GIVE URINE. MD AWARE.
--- NOTE | 2020-09-01 17:45 | NUR ---
PO CHALLENGED DONE, PATIENT FAILED SWALLOW EVAL. DR. DA SILVA MADE AWARE AND WILL ORDER A CT SCAN. PATIENT VOMITED WATER ON THE VOMIT BAG.
--- NOTE | 2020-09-01 19:35 | NUR ---
PAGED PANTOGRAPH OPERATOR GI FOR CONSULT. NO ANSWER, LEFT MESSAGE.
[2020-09-01] MEDS ORDERED: Z GUARD REMEDY 2 OZ OINT TP PRN (21:00)
[2020-09-01] MEDS ORDERED: MAGNESIUM HYDROXIDE 30 ML UDC PO PRN (21:00)
[2020-09-01] MEDS ORDERED: IV NS 0.9% 1,000 ML IV PRN (21:00)
[2020-09-01] MEDS ORDERED: MORPHINE SULFATE INJ 2 MG/ML DISP.SYRIN IV PRN (21:00)
[2020-09-01] MEDS ORDERED: MAG HYDROX/AL HYDROX/SIMETH 30 ML UDC PO PRN (21:00)
[2020-09-01] MEDS ORDERED: ONDANSETRON HCL/PF 4 MG/2 ML VIAL IVP PRN (21:00)
[2020-09-01] MEDS ORDERED: POTASSIUM CL. PREMIX PERIPHER. 50 ML IV SCH (21:00)
--- NOTE | 2020-09-01 21:02 | NUR ---
PT WHEELED TO GI LAB
[2020-09-01] MEDS ORDERED: ANESTHESIA TRAY IN PYXIS 1 EA TRAY MC ONE (21:05)
[2020-09-01] MEDS ORDERED: SUCCINYLCHOLINE CHLORIDE 20 MG/ML VIAL ONE (21:22)
[2020-09-01] MEDS ORDERED: FAMOTIDINE/PF INJ 20 MG/2 ML VIAL IV ONE (21:22)
--- NOTE | 2020-09-01 21:24 | NUR ---
REPORT GIVEN TO NITA RANDALL FOR FRIEDA.
[2020-09-01] MEDS ORDERED: POTASSIUM CL. PREMIX PERIPHER. 100 ML ONE (21:29)
--- NOTE | 2020-09-01 21:33 | NUR ---
20MEQ POTASSIUM ENDORSED TO NITA RANDALL.
[2020-09-02] VITALS (9 sets, daily range): BP systolic 90–110; BP diastolic 50–60
--- NOTE | 2020-09-02 00:15 | NUR ---
MS RN Admitting/Opening Notes Patient arrived via gurney at approximately 0015 accompanied by Nurse Feliciano. Patient's alert and oriented x4. Patient's on 2 liters of oxygen/minute via nasal cannula with no respiratory distress noted. Patient has an IV access on his right AC gauge #18 which is running NS at 50mL/hour. Safety measures in place: Bed locked, bed alarm on, side rails up x3, and call light within reach. Will continue to monitor the patient.
[2020-09-02 06:30] LABS: CALCIUM, SERUM 7.6 mg/dL (8.5-10.1); CREATININE 1.4 mg/dL (0.6-1.3); MAGNESIUM 1.7 mg/dL (1.8-2.4); PHOSPHORUS 1.8 mg/dL (2.5-4.9); POTASSIUM 3.1 mmol/L (3.5-5.1)
[2020-09-02 06:35] LABS: THYROID STIMULATING HORMONE 2.786 uIU/mL (0.358-3.74)
[2020-09-02 06:51] LABS: BASOPHILS % (AUTO) 0.2 % (0.0-2.0); HEMATOCRIT 24 % (39-51); LYMPHOCYTES # (AUTO) 0.1 K/uL (0.8-4.8); MEAN CORPUSCULAR HGB CONC 29 g/dl (31.0-36.0); MEAN CORPUSCULAR VOLUME 63 fL (80-96); MONOCYTES # (AUTO) 0.2 K/uL (0.1-1.30); MONOCYTES % (AUTO) 1.5 % (2.0-12.0); NEUTROPHILS # (AUTO) 10.4 K/uL (1.8-8.9); NEUTROPHILS % (AUTO) 97.3 % (43.0-81.0); PLATELET COUNT (AUTO) 207 K/uL (150-450); RED BLOOD CELL COUNT(AUTO) 3.76 MIL/uL (4.5-6.0); WHITE BLOOD COUNT (AUTO) 10.7 K/uL (4.3-11.0)
[2020-09-02 07:13] LABS: HEMOGLOBIN 6.8 g/dL (13.5-17.5)
--- NOTE | 2020-09-02 07:21 | NUR ---
MS RN OPENING NOTE RECEIVED PATIENT RESTING IN BED. PATIENT IS A/O X4. PATIENT IS BREATHING EVENLY AND NONLABORED ON ROOM AIR. NO SIGNS OF DISTRESS NOTED. PATIENT DOES NOT COMPLAIN OF PAIN AT THIS TIME. PATIENT IS POST EGD PROCEDURE. PATIENT HAS IV ACCESS RAC # 18 RUNNING NS @ 50 ML/HR. RECEIVED CALL FROM LABORATORY FOR CRITICAL LAB VALUE HGB 6.8. MD NOTIFIED WITH NEW ORDER TO TRANSFUSE 1 UNIT PRBC. PATIENT WAS EDUCATED ON THE PROCEDURE RISK BENEFITS AND NEEDS. PATIENT AGREED TO PROCEDURE. WILL CONTINUE TO EDUCATE PATIENT ON SIGNS AND SYMPTOMS OF TRANSFUSION REACTIONS. SAFETY MEASURES ARE IN PLACE, BED LOW LOCKED CALL LIGHT WITHIN REACH. WILL CONTINUE TO MONITOR.
[2020-09-02] MEDS: PANTOPRAZOLE 40 MG VIAL IV SCH (08:20)
[2020-09-02] MEDS: NICOTINE PATCH (7MG) 7 MG PATCH.TD24 TD SCH (08:20)
[2020-09-02] MEDS: Magnesium 1GM/D5W 100ML PREMIX 100 ML IV SCH ×2 (08:45→09:51)
[2020-09-02] MEDS: FERROUS SULFATE (325 MG) 325 MG/TAB TABLET PO SCH ×3 (09:03→16:30)
[2020-09-02] MEDS: POTASSIUM CL. PREMIX PERIPHER. 50 ML IV SCH ×4 (09:04→13:06)
[2020-09-02 10:02] LABS: BAND % (MANUAL) 7 % (0.0-5.0); LYMPHOCYTES % (MANUAL) 2 % (16-48); MONOCYTES % (MANUAL) 1 % (0-11.0); NEUTROPHILS % (MANUAL) 90 (42-76)
[2020-09-02] MEDS ORDERED: Sodium Phosphate 15 MMOL in IV NS 0.9% 245 ML IV SCH ×2 (12:00→16:00)
--- NOTE | 2020-09-02 12:00 | NUR ---
RN NOTE MIDLINE INSERTED, #18 GAUGE PATIENT TOLERATED WELL.
--- NOTE | 2020-09-02 12:00 | NUR ---
RN NOTE BLOOD PRODUCT READY FOR CARE TECH, CONTINUED EDUCATION ON SIGNS AND SYMPTOMS OF TRANSFUSION REACTIONS, PATIENT VERBALIZED UNDERSTANDING.
--- NOTE | 2020-09-02 12:52 | NUR ---
RN NOTE BLOOD TRANSFUSION STARTED, VITALS DOCUMENTED. WILL CONTINUE TO MONITOR
[2020-09-02] MEDS: SOD FERRIC GLUC 125 MG in IV NS 0.9% 100 ML IV SCH (14:30)
[2020-09-02] MEDS: ACETAMINOPHEN 325 MG TABLET PO PRN (14:46)
[2020-09-02] MEDS ORDERED: Potassium Chloride 30 MEQ in IV D5W 1,000 ML IV PRN (15:00)
--- NOTE | 2020-09-02 15:36 | NUR ---
RN NOTE PATIENT'S TRANSFUSION COMPLETED. PATIENT TOLERATED WELL. VITALS WNL THROUGHOUT PROCEDURE. WILL CONTINUE TO MONITOR
--- NOTE | 2020-09-02 16:20 | NUR ---
SS Consult: SS Consult requested for SI & Homelessness. The pt. is a 65-year old male Slovak speaking who presents to the ED with C/O anemia & "choking on chicken" per pt. The pt. appears unkempt, A&O X4 and makes poor eye contact. Pt.s speech & mood are WNL. The pt. denies SI/HI and denies hallucinations. SW explored pt.s living situation. Pt. states he has been experiencing homelessness for over 6 years. SW explored pt.s drug & alcohol use. Pt. states he smokes cigarettes drinks alcohol recreationally and denies drug use. SW explored pt.s mental health Hx. Pt. denies Hx. of mental illness. Pt. states he is ambulatory and receives no financial assisstance. SW explored pt.s support system. Pt. states he has brothers in [place] who he doesnt speak to and children in [place]. Plan: Pt. signed homeless waiver and it was placed in the chart. MIKE provided pt. with homeless, and mental health resources and he accepted them: Year-round shelters: [facility] [address] [place] [address] ; [facility] [address] [place] [address]; [facility] Naxeixo[address] [facility] [address] Winter Shelters: Dash Araujo Provider: [facility] [place] Address: [address] [place], [address] # of Beds: 47 Population Served: [facility] 6 | [facility] Aminah [place] Provider: [facility] Last Address: [address], [address] # of Beds: 66 Population Served: [facility] [employer] [place] Provider: First to Serve Address: [address] [facility], [address] # of Beds: 56 Population Served: [facility] Nima [place] Provider: /[facility] Address: [address] [facility], [address] # of Beds: 49 Population Served: [facility] 8 | [facility] [place] Provider: First to Serve Address: [address] [facility]. Roly, Dominique # of Beds: 37 Population Served: Danielle Hygiene: [facility] [address] [address] Hy[place] ; [facility] [address] [facility] [place] ; [facility] [address] [place] . Food Resources: [place] [facility] at [facility]- [address] [place]; Meet Each Need with Dignity ([facility]) [address] [address] [place]; [facility] [address] [facility]; [facility] [address] [facility]. Mental Health resources provided: [facility] [address] [place], [place] [phone] ; [facility] [address] [facility] [address], [place], [place] [phone] ; Gisella De La Rosa [facility] [address] [place] [address] ; [facility] [address] [place], [place] [phone] Healthcare Clinics: [facility] [address] [facility], [address] [place]. [place] ; [facility] [address] [facility] [address] [place] [address]; [facility] [place] [address] [facility]. [place] [phone] Counseling--Outpatient [facility] [address] [facility], [facility] [place], [place] [phone] (Specializes in in-depth psychotherapy for emotional distress: anxiety, depression, interpersonal conflicts, life transitions, childhood abuse) [facility] [address] [place] [address] (Assist with solving problem marital difficulties, separation & divorce, aging parents, & grief, chronic & terminal illness) [facility] [address] [place] [address] (Deal with loss & grief, anxiety, marital difficulties) Homebound/Mental Health Services [address] [facility], [address] [place], [place] [phone] (Provide in-home mental services to people who are incapable of leaving their homes) [facility] Elderly [facility] [address] [place] [address] [facility] [address] [facility] [address] PSYCHIATRIC OUTPATIENT SERVICES [facility] Partial Hospitalization and Intensive Outpatient Program (Managed Care and [place] Only)[address] [facility] [phone] [facility] Partial Hospitalization and Outpatient [id number] [facility]. [address] [place], [place] [phone] [facility] [place] Lpa[address] [facility]. [address] [place], [place] [phone] [facility] Partial Hospitalization and Outpatient [id number] [place], [phone] Substance Abuse resources provided included: [facility] Substance Abuse Self-Helpline (SAS) ; [facility] [address] [facility]. [place] [address] ; [facility] [address] [facility] [address] ; [facility] [address] [facility] [address] ; [facility] [address] [facility] [address] ; [facility] [address] [facility] [address] ; [facility] [address] [facility] [phone] ; [facility] Substance Abuse Helpline(SAS)-[facility] ; [facility] Family Counseling ; [facility] [place]; [facility]; [facility] [place]; [facility] Júnior [place]; [facility] [place]; [facility] [place]; [facility] [place]; [facility] Forbes; Alcoholics Anonymous -SFV; Gw-Kwpc-Hqlgpiz ; Marijuana Anonymous -SFV; Narcotics Anonymous www.na.org;
--- NOTE | 2020-09-02 18:37 | NUR ---
MS RN CLOSING NOTE PATIENT RESTING IN BED. PATIENT IS A/O X4. PATIENT IS BREATHING EVENLY AND NONLABORED ON ROOM AIR. NO SIGNS OF DISTRESS NOTED. PATIENT DOES NOT COMPLAIN OF PAIN AT THIS TIME. PATIENT IS POST EGD PROCEDURE. PATIENT HAS IV ACCESS RAC # 18 RUNNING SODIUM PHOSPHATE @ 33ML/HR AND LEFT UPPER ARM MIDLINE # 18 PATENT AND INTACT. PATIENT IS POST TRANSFUSION OF 1 UNIT PRBC. PATIENT TOLERATED WELL. ALL MEDICATIONS GIVEN ORDERED. SAFETY MEASURES ARE IN PLACE, BED LOW LOCKED CALL LIGHT WITHIN REACH. WILL ENDORSE TO ONCOMING SHIFT
--- NOTE | 2020-09-02 19:30 | NUR ---
MS RN OPENING NOTE RECEIVED PATIENT IN BED, ASLEEP, EASILY AWAKEN BY VERBAL AND TACTILE STIMULI. NOT IN ANY FORM OF ACUTE DISTRESS NOTED. PATIENT IS BREATHING EVENLY AND NONLABORED ON ROOM AIR. NO COMPLAINTS OF PAIN AT THIS TIME. PATIENT HAS IV ACCESS RAC # 18 RUNNING SODIUM PHOSPHATE @ 33ML/HR AND LEFT UPPER ARM MIDLINE # 18 PATENT, INTACT AND FLUSHES WELL. NO REDNESS, NO S/SX OF INFILTRATION NOTED. SAFETY MEASURES OBSERVED: BED LOWEST LOCKED POSITION, CALL LIGHT WITHIN REACH. WILL CONTINUE TO MONITOR PATIENT'S CURRENT STATUS.
[2020-09-02 20:30] LABS: HEMOGLOBIN 7.1 g/dL (13.5-17.5)
[2020-09-03 04:25] LABS: BASOPHILS # (AUTO) 0.1 K/uL (0.0-0.2); BASOPHILS % (AUTO) 0.1 % (0.0-2.0); HEMATOCRIT 25 % (39-51); HEMOGLOBIN 7.3 g/dL (13.5-17.5); LYMPHOCYTES # (AUTO) 0.8 K/uL (0.8-4.8); LYMPHOCYTES % (AUTO) 2.4 % (20.0-44.0); MEAN CORPUSCULAR HGB CONC 29 g/dl (31.0-36.0); MEAN CORPUSCULAR VOLUME 63 fL (80-96); MONOCYTES # (AUTO) 2.5 K/uL (0.1-1.30); MONOCYTES % (AUTO) 7.3 % (2.0-12.0); NEUTROPHILS # (AUTO) 31.6 K/uL (1.8-8.9); NEUTROPHILS % (AUTO) 90.2 % (43.0-81.0); PLATELET COUNT (AUTO) 194 K/uL (150-450); RED BLOOD CELL COUNT(AUTO) 3.96 MIL/uL (4.5-6.0)
[2020-09-03 04:40] LABS: CALCIUM, SERUM 7.5 mg/dL (8.5-10.1); CREATININE 1.3 mg/dL (0.6-1.3); MAGNESIUM 2.1 mg/dL (1.8-2.4); PHOSPHORUS 3.7 mg/dL (2.5-4.9); POTASSIUM 4.4 mmol/L (3.5-5.1)
[2020-09-03 05:06] LABS: WHITE BLOOD COUNT (AUTO) 35.1 K/uL (4.3-11.0)
[2020-09-03 05:16] LABS: BAND % (MANUAL) 23 % (0.0-5.0); LYMPHOCYTES % (MANUAL) 2 % (16-48); MONOCYTES % (MANUAL) 9 % (0-11.0); NEUTROPHILS % (MANUAL) 66 (42-76)
[2020-09-03] MEDS ORDERED: CEFTRIAXONE 1 G VIAL ONE (05:22)
[2020-09-03] MEDS ORDERED: CEFTRIAXONE 1 G in IV D5W 50 ML IV SCH (05:30)
--- NOTE | 2020-09-03 05:37 | NUR ---
RN NOTES RECEIVED A CRITICAL VALUE RESULT AT 0506. WBC RESULT OF 35.1. RELAYED TO YENIFER TELLEZ NP, WITH ORDERS MADE AND CARRIED OUT.
[2020-09-03 06:25] LABS: BASOPHILS % (AUTO) 0.1 % (0.0-2.0); HEMATOCRIT 29 % (39-51); HEMOGLOBIN 8.2 g/dL (13.5-17.5); LYMPHOCYTES # (AUTO) 0.8 K/uL (0.8-4.8); LYMPHOCYTES % (AUTO) 2.2 % (20.0-44.0); MEAN CORPUSCULAR HGB CONC 29 g/dl (31.0-36.0); MEAN CORPUSCULAR VOLUME 65 fL (80-96); MONOCYTES # (AUTO) 2.4 K/uL (0.1-1.30); MONOCYTES % (AUTO) 6.5 % (2.0-12.0); NEUTROPHILS % (AUTO) 91.2 % (43.0-81.0); PLATELET COUNT (AUTO) 199 K/uL (150-450); RED BLOOD CELL COUNT(AUTO) 4.48 MIL/uL (4.5-6.0)
--- NOTE | 2020-09-03 06:25 | NUR ---
MS RN CLOSING NOTES PATIENT IN BED, ASLEEP, EASILY AWAKEN BY VERBAL AND TACTILE STIMULI. NOT IN ANY FORM OF ACUTE DISTRESS NOTED. BREATHING EVEN AND UNLABORED ON ROOM AIR. NO COMPLAINTS OF PAIN AT THIS TIME. PATIENT HAS IV ACCESS RAC # 18 AND LEFT UPPER ARM MIDLINE # 18 ONGOING D5 WATER + 30 MEQS KCL, PATENT, INTACT AND INFUSING WELL. NO REDNESS, NO S/SX OF INFILTRATION NOTED. SAFETY MEASURES OBSERVED AND MAINTAINED DURING THE SHIFT: BED LOWEST LOCKED POSITION, CALL LIGHT WITHIN REACH. ALL NEEDS ATTENDED AND MET. WILL ENDORSE TO AM NURSE FOR FRIEDA.
[2020-09-03 07:46] LABS: WHITE BLOOD COUNT (AUTO) 37.3 K/uL (4.3-11.0)
[2020-09-03 08:10] VITALS: BP 132/72
[2020-09-03] MEDS ORDERED: VANCOMYCIN HCL 1.25 GM in IV D5W 260 ML IV ONE (09:00)
[2020-09-03] MEDS: NICOTINE PATCH (7MG) 7 MG PATCH.TD24 TD SCH (09:10)
[2020-09-03] MEDS: FERROUS SULFATE (325 MG) 325 MG/TAB TABLET PO SCH ×3 (09:10→16:33)
[2020-09-03] MEDS: PANTOPRAZOLE 40 MG VIAL IV SCH (09:10)
[2020-09-03] MEDS ORDERED: IOHEXOL-300 100 ML VIAL IV ONE (09:18)
[2020-09-03] MEDS ORDERED: CT SWABBABLE VALVE TRANS SET 1 EA INFUS.SET MC ONE (09:18)
[2020-09-03] MEDS ORDERED: IV NS 0.9% 250 ML IV ONE (09:18)
[2020-09-03] MEDS: METRONIDAZOLE 500MG/ NS 100ML 500 MG in PREMIX 1 EA IV SCH ×2 (09:19→16:33)
[2020-09-03] MEDS ORDERED: DIATR MEGLU/DIATRIZOATE SODIUM 120 ML BOTTLE (GASTROGRAPHIN) ONE ×2 (09:19→09:43)
[2020-09-03] MEDS ORDERED: CEFEPIME 2 GM in IV D5W 100 ML IV SCH (10:00)
[2020-09-03 11:25] LABS: ALANINE AMINOTRANSFERASE 32 U/L (12-78); ALBUMIN 2.8 g/dL (3.4-5.0); ALKALINE PHOSPHATASE 77 U/L (46-116); ASPARTATE AMINOTRANSFERASE 42 U/L (15-37); BILIRUBIN,DIRECT 0.1 mg/dL (0.0-0.2); BILIRUBIN,TOTAL 0.5 mg/dL (0.2-1.0); TOTAL PROTEIN, SERUM 7.3 g/dL (6.4-8.2)
--- NOTE | 2020-09-03 12:38 | NUR ---
MS RN OPENING NOTE RECEIVED PATIENT IN BED, ASLEEP. EASY TO AROUSE. A/O X4 - COLOMBIAN SPEAKING BUT UNDERSTANDS LITTLE ZAMBIAN. STABLE ON ROOM AIR - NO SOB NOTED. NO DISTRESS/DISCOMFORT NOTED. CRITICAL LAB RESULT RECEIVED - 37.1 WBC - DOCTOR ALDO NOTIFIED. NO COMPLAINTS OF PAIN AT THIS TIME. IV ACCESS TO RAC #18. AND LEFT UPPER ARM MIDLINE - PATENT, INTACT AND FLUSHES WELL. SAFETY MEASURES IMPLEMENTED. CALL LIGHT WITHIN REACH. WILL CONTINUE TO MONITOR. Addendum: 09/03/20 at 1241 by CHAR TAYLOR RN OPENING NOTE FROM 0800 TODAY.
[2020-09-03 12:45] LABS: HEMATOCRIT 27 % (39-51); HEMOGLOBIN 7.7 g/dL (13.5-17.5); LYMPHOCYTES # (AUTO) 1.2 K/uL (0.8-4.8); LYMPHOCYTES % (AUTO) 3.3 % (20.0-44.0); MEAN CORPUSCULAR HGB CONC 28 g/dl (31.0-36.0); MEAN CORPUSCULAR VOLUME 64 fL (80-96); MONOCYTES # (AUTO) 1.8 K/uL (0.1-1.30); MONOCYTES % (AUTO) 4.9 % (2.0-12.0); NEUTROPHILS # (AUTO) 33.9 K/uL (1.8-8.9); NEUTROPHILS % (AUTO) 91.8 % (43.0-81.0); PLATELET COUNT (AUTO) 213 K/uL (150-450); RED BLOOD CELL COUNT(AUTO) 4.23 MIL/uL (4.5-6.0)
[2020-09-03] MEDS: SOD FERRIC GLUC 125 MG in IV NS 0.9% 100 ML IV SCH (13:52)
[2020-09-03 16:20] VITALS: BP 146/90
--- NOTE | 2020-09-03 18:43 | NUR ---
MS RN CLOSING NOTE PATIENT CURRENTLY LYING IN BED COMFORTABLY, RESTING. EASY TO AROUSE. A/O X4 - KYRGYZ SPEAKING BUT UNDERSTANDS LITTLE BELARUSIAN. STABLE ON ROOM AIR - NO SOB NOTED. NO DISTRESS/DISCOMFORT NOTED. NO COMPLAINTS OF PAIN AT THIS TIME. IV ACCESS TO RAC #18, LEFT UPPER ARM MIDLINE - PATENT, INTACT AND FLUSHES WELL, S/L. SAFETY MEASURES IMPLEMENTED. CALL LIGHT WITHIN REACH. WILL ENDORSE TO HIM ASSISTANT NURSE FOR FRIEDA
--- NOTE | 2020-09-03 19:30 | NUR ---
MS RN OPENING NOTE RECEIVED PATIENT IN BED, ASLEEP, EASILY AWAKEN BY VERBAL AND TACTILE STIMULI. NOT IN ANY FORM OF ACUTE DISTRESS NOTED, BREATHING EVEN AND UNLABORED ON ROOM AIR. AFEBRILE, NO S/SX OF BLEEDING NOTED AT THIS TIME. NO COMPLAINTS OF PAIN AT THIS TIME. PATIENT HAS IV ACCESS RAC # 18 AND LEFT UPPER ARM MIDLINE # 18, BOTH PATENT, INTACT AND FLUSHES WELL. NO REDNESS, NO S/SX OF INFILTRATION NOTED. SAFETY MEASURES OBSERVED: BED ON LOWEST LOCKED POSITION, CALL LIGHT WITHIN REACH. WILL CONTINUE TO MONITOR PATIENT'S CURRENT STATUS.
[2020-09-03 20:00] VITALS: BP 122/82
[2020-09-03] MEDS ORDERED: PANTOPRAZOLE 40 MG VIAL IV SCH (20:30)
[2020-09-03] MEDS ORDERED: VANCOMYCIN HCL 0.75 GM in IV D5W 250 ML IV SCH (21:00)
[2020-09-03] MEDS ORDERED: PIPERACILLIN /TAZOBACTAM 3.375 G in IV D5W 50 ML IV SCH (21:00)
[2020-09-03] MEDS: PIPERACILLIN /TAZOBACTAM 3.375 G in IV D5W 50 ML IV SCH (21:05)
[2020-09-03 22:36] LABS: BILIRUBIN,URINE NEGATIVE (NEGATIVE); COLOR,URINE YELLOW (YELLOW); LEUKOCYTE ESTERASE ,URINE NEGATIVE (NEGATIVE); NITRITE, URINE NEGATIVE (NEGATIVE); PROTEIN,URINE NEGATIVE (NEGATIVE); UGLUCOSE NEGATIVE (NEGATIVE); UROBILINOGEN,URINE 0.2 EU/dL (0.2)
[2020-09-03 23:09] LABS: BACTERIA,URINE None seen /HPF (None Seen); MUCUS,URINE Rare /LPF (None Seen); RBC,URINE 0-2 /HPF (0-2); SQUAMOUS EPITHELIAL CELL,UR Rare /HPF (None Seen); WBC,URINE 0-2 /HPF (0-3)
[2020-09-03 23:18] LABS: HEMOGLOBIN 7.4 g/dL (13.5-17.5)
[2020-09-04] MEDS: METRONIDAZOLE 500MG/ NS 100ML 500 MG in PREMIX 1 EA IV SCH ×3 (00:16→16:38)
[2020-09-04] MEDS: PIPERACILLIN /TAZOBACTAM 3.375 G in IV D5W 50 ML IV SCH ×4 (02:32→20:05)
--- NOTE | 2020-09-04 06:27 | NUR ---
MS RN CLOSING NOTES PATIENT IN BED, ASLEEP, EASILY AWAKEN BY VERBAL AND TACTILE STIMULI. NOT IN ANY FORM OF ACUTE DISTRESS NOTED, BREATHING EVEN AND UNLABORED ON ROOM AIR. AFEBRILE, NO S/SX OF BLEEDING NOTED AT THIS TIME. NO COMPLAINTS OF PAIN AT THIS TIME. PATIENT HAS IV ACCESS RAC # 18 AND LEFT UPPER ARM MIDLINE # 18, BOTH PATENT, INTACT AND FLUSHES WELL. NO REDNESS, NO S/SX OF INFILTRATION NOTED. SAFETY MEASURES OBSERVED AND MAINTAINED DURING THE SHIFT: BED ON LOWEST LOCKED POSITION, CALL LIGHT WITHIN REACH. ALL NEEDS ATTENDED AND MET, WILL ENDORSE TO MORNING NURSE FOR FRIEDA.
[2020-09-04 06:50] LABS: BASOPHILS % (AUTO) 0.1 % (0.0-2.0); EOSINOPHILS % (AUTO) 0.1 % (0.0-6.0); HEMATOCRIT 26 % (39-51); HEMOGLOBIN 7.6 g/dL (13.5-17.5); LYMPHOCYTES # (AUTO) 1.3 K/uL (0.8-4.8); LYMPHOCYTES % (AUTO) 3.8 % (20.0-44.0); MEAN CORPUSCULAR HGB CONC 29 g/dl (31.0-36.0); MEAN CORPUSCULAR VOLUME 63 fL (80-96); MONOCYTES # (AUTO) 1.2 K/uL (0.1-1.30); MONOCYTES % (AUTO) 3.5 % (2.0-12.0); NEUTROPHILS # (AUTO) 31.8 K/uL (1.8-8.9); NEUTROPHILS % (AUTO) 92.5 % (43.0-81.0); PLATELET COUNT (AUTO) 214 K/uL (150-450); RED BLOOD CELL COUNT(AUTO) 4.16 MIL/uL (4.5-6.0)
[2020-09-04 06:59] LABS: WHITE BLOOD COUNT (AUTO) 34.4 K/uL (4.3-11.0)
[2020-09-04 07:12] LABS: ALBUMIN 2.4 g/dL (3.4-5.0); BILIRUBIN,TOTAL 0.4 mg/dL (0.2-1.0); CALCIUM, SERUM 8.2 mg/dL (8.5-10.1); TOTAL PROTEIN, SERUM 6.8 g/dL (6.4-8.2)
[2020-09-04 07:53] LABS: BAND % (MANUAL) 4 % (0.0-5.0); LYMPHOCYTES % (MANUAL) 3 % (16-48); MONOCYTES % (MANUAL) 4 % (0-11.0); NEUTROPHILS % (MANUAL) 89 (42-76)
[2020-09-04 08:00] VITALS: BP 105/56
[2020-09-04] MEDS: FERROUS SULFATE (325 MG) 325 MG/TAB TABLET PO SCH ×3 (08:48→16:36)
[2020-09-04] MEDS: NICOTINE PATCH (7MG) 7 MG PATCH.TD24 TD SCH (08:48)
[2020-09-04] MEDS: PANTOPRAZOLE 40 MG/PACK PACK PO SCH (08:48)
[2020-09-04] MEDS ORDERED: VANCOMYCIN HCL 0.75 GM in IV D5W 250 ML IV SCH (10:00)
[2020-09-04 12:21] LABS: HEMOGLOBIN 8.1 g/dL (13.5-17.5)
[2020-09-04] MEDS: SOD FERRIC GLUC 125 MG in IV NS 0.9% 100 ML IV SCH (13:03)
--- NOTE | 2020-09-04 13:03 | NUR ---
MS RN NOTE PATIENT REFUSES FERRLECIT - SAYS IT MAKES HIM GET UP AND GO TO THE BATHROOM TOO OFTEN.
[2020-09-04 16:00] VITALS: BP 135/80
--- NOTE | 2020-09-04 19:16 | NUR ---
MS RN CLOSING NOTE PATIENT CURRENTLY LYING IN BED, RESTING. EASY TO AROUSE. A/O X4 - NEPALESE SPEAKING BUT UNDERSTANDS LITTLE GEORGIAN. STABLE ON ROOM AIR - NO SOB NOTED. NO DISTRESS/DISCOMFORT NOTED. NO COMPLAINTS OF PAIN AT THIS TIME. IV ACCESS TO RAC #18, LEFT UPPER ARM MIDLINE - PATENT, INTACT AND FLUSHES WELL, S/L. SAFETY MEASURES IMPLEMENTED. CALL LIGHT WITHIN REACH. WILL ENDORSE TO ANIMAL SITTER NURSE FOR FRIEDA.
--- NOTE | 2020-09-04 19:42 | NUR ---
MS RN OPENING NOTE PATIENT A/OX4; ABLE TO MAKE NEEDS KNOW. TOLERATING ROOM AIR WELL WITH NO SOB. RAC #20G S/L AND AMANDA MIDLINE PATENT AND INTACT. SAFETY MEASURES IN PLACE: BED IN LOWEST LOCKED POSITION, SIDE RAILS UPX2, CALL LIGHT WITHIN EASY REACH, BED ALARMS ON. PATIENT IN STABLE CONDITION, WILL CONTINUE PLAN OF CARE.
[2020-09-04 20:00] VITALS: BP 128/84
[2020-09-04] MEDS: ACETAMINOPHEN 325 MG TABLET PO PRN (20:05)
[2020-09-04 20:23] LABS: HEMOGLOBIN 7.9 g/dL (13.5-17.5)
[2020-09-05] MEDS: PIPERACILLIN /TAZOBACTAM 3.375 G in IV D5W 50 ML IV SCH ×4 (03:03→21:42)
--- NOTE | 2020-09-05 06:53 | NUR ---
MS RN CLOSING NOTE PATIENT A/OX4; ABLE TO MAKE NEEDS KNOWN. TOLERATING ROOM AIR WELL WITH NO SOB. RAC #20G S/L AND AMANDA MIDLINE S/L PATENT AND INTACT. SAFETY MEASURES IN PLACE: BED IN LOWEST LOCKED POSITION, SIDE RAILS UPX2, CALL LIGHT WITHIN EASY REACH, BED ALARMS ON. PATIENT IN STABLE CONDITION, ENDORSE PLAN OF CARE TO ONCOMING MORNING RN.
--- NOTE | 2020-09-05 07:16 | NUR ---
MS RN OPENING NOTE RECEIVED PATIENT RESTING IN BED, AWAKE, PATIENT IS NOT NOT IN ANY FORM OF ACUTE DISTRESS NOTED, BREATHING EVEN AND UNLABORED ON ROOM AIR. NO COMPLAINTS OF PAIN AT THIS TIME. PATIENT HAS IV ACCESS RAC # 20 AND LEFT UPPER ARM MIDLINE # 18, BOTH PATENT, INTACT AND FLUSHES WELL. NO REDNESS, NO S/SX OF INFILTRATION NOTED. SAFETY MEASURES OBSERVED: BED ON LOWEST LOCKED POSITION, CALL LIGHT WITHIN REACH. WILL CONTINUE TO MONITOR
[2020-09-05 08:00] VITALS: BP 129/68
[2020-09-05] MEDS: NICOTINE PATCH (7MG) 7 MG PATCH.TD24 TD SCH (08:31)
[2020-09-05] MEDS: FERROUS SULFATE (325 MG) 325 MG/TAB TABLET PO SCH ×3 (08:32→16:04)
[2020-09-05] MEDS: PANTOPRAZOLE 40 MG/PACK PACK PO SCH (08:33)
[2020-09-05 08:44] LABS: BASOPHILS % (AUTO) 0.2 % (0.0-2.0); EOSINOPHILS % (AUTO) 1.3 % (0.0-6.0); HEMATOCRIT 28 % (39-51); HEMOGLOBIN 8.2 g/dL (13.5-17.5); LYMPHOCYTES # (AUTO) 1.4 K/uL (0.8-4.8); MEAN CORPUSCULAR HGB CONC 29 g/dl (31.0-36.0); MEAN CORPUSCULAR VOLUME 64 fL (80-96); MONOCYTES # (AUTO) 0.6 K/uL (0.1-1.30); MONOCYTES % (AUTO) 3.8 % (2.0-12.0); NEUTROPHILS # (AUTO) 13.7 K/uL (1.8-8.9); NEUTROPHILS % (AUTO) 85.7 % (43.0-81.0); PLATELET COUNT (AUTO) 237 K/uL (150-450); RED BLOOD CELL COUNT(AUTO) 4.45 MIL/uL (4.5-6.0)
[2020-09-05 10:44] LABS: ALBUMIN 2.6 g/dL (3.4-5.0); BILIRUBIN,TOTAL 0.4 mg/dL (0.2-1.0); CALCIUM, SERUM 8.2 mg/dL (8.5-10.1); CREATININE 0.9 mg/dL (0.6-1.3); POTASSIUM 4.2 mmol/L (3.5-5.1); TOTAL PROTEIN, SERUM 7.2 g/dL (6.4-8.2)
[2020-09-05 13:26] LABS: EOSINOPHILS % (MANUAL) 1 % (0-4); LYMPHOCYTES % (MANUAL) 10 % (16-48); MONOCYTES % (MANUAL) 6 % (0-11.0); NEUTROPHILS % (MANUAL) 83 (42-76)
[2020-09-05] MEDS: SOD FERRIC GLUC 125 MG in IV NS 0.9% 100 ML IV SCH (13:42)
--- NOTE | 2020-09-05 13:43 | NUR ---
RN NOTE PATIENT REFUSED FERLLICET MEDICATION. EXPLAINED RISK AND BENEFITS OF REFUSING. PATIENT STATED IT MADE HIM USED THE BATHROOM TOO MUCH AND HE DID NOT NEED IT. WILL CONTINUE TO MONITOR
[2020-09-05 16:00] VITALS: BP 118/67
[2020-09-05] MEDS: ACETAMINOPHEN 325 MG TABLET PO PRN ×2 (16:34→22:37)
--- NOTE | 2020-09-05 18:27 | NUR ---
MS RN CLOSING NOTE PATIENT RESTING IN BED, AWAKE, PATIENT IS A/O X3. PATIENT IS NOT NOT IN ANY FORM OF ACUTE DISTRESS NOTED, BREATHING EVEN AND UNLABORED ON ROOM AIR. NO COMPLAINTS OF PAIN AT THIS TIME. PATIENT HAS IV ACCESS RAC # 20 AND LEFT UPPER ARM MIDLINE # 18, BOTH PATENT, INTACT AND FLUSHES WELL. NO REDNESS, NO S/SX OF INFILTRATION NOTED. ALL MEDICATION GIVEN ORDERED. SAFETY MEASURES OBSERVED: BED ON LOWEST LOCKED POSITION, CALL LIGHT WITHIN REACH. WILL ENDORSE TO ONCOMING SHIFT
--- NOTE | 2020-09-05 19:25 | NUR ---
MS RN CLOSING NOTE PATIENT A/OX4; ABLE TO MAKE NEEDS KNOWN. TOLERATING ROOM AIR WELL WITH NO SOB. RAC #20G S/L AND AMANDA MIDLINE S/L PATENT AND INTACT. SAFETY MEASURES IN PLACE: BED IN LOWEST LOCKED POSITION, SIDE RAILS UPX2, CALL LIGHT WITHIN EASY REACH, BED ALARMS ON. PATIENT IN STABLE CONDITION, WILL CONTINUE PLAN OF CARE. Addendum: 09/06/20 at 0705 by HENRRY VENTURA RN OPENING
[2020-09-05 20:00] VITALS: BP 117/77
--- NOTE | 2020-09-05 22:37 | NUR ---
MS RN NOTE - PAIN PATIENT C/O BACK PAIN, ADMINISTERED TYLENOL ORDERED. WILL CONTINUE TO REASSESS FOR PAIN.
[2020-09-06] MEDS: PIPERACILLIN /TAZOBACTAM 3.375 G in IV D5W 50 ML IV SCH ×2 (02:39→08:23)
[2020-09-06 06:10] LABS: CALCIUM, SERUM 8.3 mg/dL (8.5-10.1); CREATININE 0.8 mg/dL (0.6-1.3); POTASSIUM 4.2 mmol/L (3.5-5.1)
[2020-09-06 06:15] LABS: BASOPHILS % (AUTO) 0.6 % (0.0-2.0); HEMATOCRIT 30 % (39-51); HEMOGLOBIN 8.8 g/dL (13.5-17.5); LYMPHOCYTES # (AUTO) 1.6 K/uL (0.8-4.8); LYMPHOCYTES % (AUTO) 20.2 % (20.0-44.0); MEAN CORPUSCULAR HGB CONC 30 g/dl (31.0-36.0); MEAN CORPUSCULAR VOLUME 64 fL (80-96); MONOCYTES # (AUTO) 0.8 K/uL (0.1-1.30); MONOCYTES % (AUTO) 10.1 % (2.0-12.0); NEUTROPHILS # (AUTO) 5.2 K/uL (1.8-8.9); NEUTROPHILS % (AUTO) 66.1 % (43.0-81.0); PLATELET COUNT (AUTO) 238 K/uL (150-450); RED BLOOD CELL COUNT(AUTO) 4.71 MIL/uL (4.5-6.0); WHITE BLOOD COUNT (AUTO) 7.9 K/uL (4.3-11.0)
[2020-09-06 06:26] LABS: ALBUMIN 2.6 g/dL (3.4-5.0); BILIRUBIN,TOTAL 0.3 mg/dL (0.2-1.0); CALCIUM, SERUM 8.3 mg/dL (8.5-10.1); CREATININE 0.9 mg/dL (0.6-1.3); POTASSIUM 4.3 mmol/L (3.5-5.1); TOTAL PROTEIN, SERUM 7.2 g/dL (6.4-8.2)
--- NOTE | 2020-09-06 07:04 | NUR ---
MS RN CLOSING NOTE PATIENT A/OX4; ABLE TO MAKE NEEDS KNOWN. TOLERATING ROOM AIR WELL WITH NO SOB. RAC #20G S/L AND AMANDA MIDLINE S/L PATENT AND INTACT. SAFETY MEASURES IN PLACE: BED IN LOWEST LOCKED POSITION, SIDE RAILS UPX2, CALL LIGHT WITHIN EASY REACH, BED ALARMS ON. PATIENT IN STABLE CONDITION, ENDORSED PLAN OF CARE TO ONCOMING MORNING RN.
[2020-09-06 07:55] LABS: EOSINOPHILS % (MANUAL) 3 % (0-4); LYMPHOCYTES % (MANUAL) 24 % (16-48); MONOCYTES % (MANUAL) 8 % (0-11.0); NEUTROPHILS % (MANUAL) 65 (42-76)
[2020-09-06 08:00] VITALS: BP 139/75
[2020-09-06] MEDS: NICOTINE PATCH (7MG) 7 MG PATCH.TD24 TD SCH (08:22)
[2020-09-06] MEDS: PANTOPRAZOLE 40 MG/PACK PACK PO SCH (08:22)
[2020-09-06] MEDS: FERROUS SULFATE (325 MG) 325 MG/TAB TABLET PO SCH ×2 (08:22→12:08)
[2020-09-06] MEDS ORDERED: AMOX500T2 PO (12:08)
[2020-09-06] MEDS ORDERED: PANT20TA2 PO (12:08)
[2020-09-06] MEDS ORDERED: CLAR-45 PO (12:08)
[2020-09-06] MEDS: ACETAMINOPHEN 325 MG TABLET PO PRN (12:55)
--- NOTE | 2020-09-06 13:09 | NUR ---
DYNAMICS AX CONSULTANT NOTE RECEIVED ORDER FOR DISCHARGE. PATIENT IS A/O X4. BREATHING EVENLY AND NONLABORED ON ROOM AIR. PATIENT IS NO ACUTE SIGNS OF DISTRESS. PATIENT DOES NOT COMPLAIN OF ANY DISCOMFORT. IV ACCESS WAS REMOVED CATHETER TIP INTACT AND PRESSURE DRESSING APPLIED. DISCHARGE INSTRUCTIONS WERE GIVEN BOTH VERBALLY AND IN WRITTEN FORM, PATIENT VERBALIZED UNDERSTANDING. HOMELESSNESS CHECKLIST COMPLETED AND PATIENT WAS GIVEN BUS PASS. PATIENT LEFT IN STABLE CONDITION AMBULATING.
== END 2020-09-06 13:05 | disposition home or self-care (01) | DRG 254 ==
LOC: ER 14:32 → MED 21:03
PROVIDERS: ADMIT Registered Nurse; ATTEND Internal Medicine
PROC: 0DC18ZZ Extirpation of Matter from Upper Esophagus, Via Natural or Artificial Opening Endoscopic (ICD-10-PCS; principal; 2020-09-01)
PROC: 0DB68ZX Excision of Stomach, Via Natural or Artificial Opening Endoscopic, Diagnostic (ICD-10-PCS; 2020-09-01)
PROC: 30233N1 Transfusion of Nonautologous Red Blood Cells into Peripheral Vein, Percutaneous Approach (ICD-10-PCS; 2020-09-02)
PROC: 05HC33Z Insertion of Infusion Device into Left Basilic Vein, Percutaneous Approach (ICD-10-PCS; 2020-09-02)
DX: T18.128A Food in esophagus causing other injury, initial encounter (principal); N17.0 Acute kidney failure with tubular necrosis; R65.20 Severe sepsis without septic shock; J69.0 Pneumonitis due to inhalation of food and vomit; A41.9 Sepsis, unspecified organism; E83.39 Other disorders of phosphorus metabolism; D50.9 Iron deficiency anemia, unspecified; F17.210 Nicotine dependence, cigarettes, uncomplicated; E87.6 Hypokalemia; X58.XXXA Exposure to other specified factors, initial encounter; Y92.89 Other specified places as the place of occurrence of the external cause; K44.9 Diaphragmatic hernia without obstruction or gangrene; Z59.0 Homelessness; Z20.822 Contact with and (suspected) exposure to COVID-19; J40 Bronchitis, not specified as acute or chronic; I77.810 Thoracic aortic ectasia; J98.11 Atelectasis; K59.00 Constipation, unspecified; D72.829 Elevated white blood cell count, unspecified; B96.81 Helicobacter pylori [H. pylori] as the cause of diseases classified elsewhere
CPT/HCPCS: 36415; 70360-TC; 71045-TC; 71250-TC; 71260-TC; 74230-TC; 80048-TC; 80053-TC; 80061-TC; 80076-TC; 81001; 82728-TC; 83540-TC; 83605-TC; 83690-TC; 83735-TC; 84100-TC; 84443-TC; 85025-TC; 85027-TC; 86850-TC; 87040-TC; 87081-TC; 88305-TC; 88313-TC; 88342; 97116-TC; 97530-TC; 97535-TC; A4216; A9563; C9113; C9803; G0378; G0480; J0330; J0692; J0696; J1100; J2405; J2543; J2704; J2765; J2916; J3370; J3475; J3480; J3490; J7030; J7040; J7050; J7060; J7070; P9016; Q9963; Q9967

== ENCOUNTER 2021-07-31 11:25 | Emergency (ER) | payer OTHER ==
[~2021-07-31] VITALS: Ht 165.1 cm; Wt 55.8 kg
[~2021-07-31 11:25] MED LIST: AMOX500T2 PO; CLAR-45 PO; PANT20TA2 PO
--- NOTE | 2021-07-31 11:46 | NUR ---
TO ER BED 13, ATTACHED TO MONITOR. SEEN BY DR. ROWLAND AT BEDSIDE.
[2021-07-31 12:31] LABS: BASOPHILS % (AUTO) 0.5 % (0.0-2.0); EOSINOPHILS % (AUTO) 1.5 % (0.0-6.0); HEMATOCRIT 32 % (39-51); HEMOGLOBIN 9.9 g/dL (13.5-17.5); LYMPHOCYTES # (AUTO) 0.8 K/uL (0.8-4.8); LYMPHOCYTES % (AUTO) 21.3 % (20.0-44.0); MEAN CORPUSCULAR HGB CONC 31 g/dl (31.0-36.0); MEAN CORPUSCULAR VOLUME 70 fL (80-96); MONOCYTES # (AUTO) 0.4 K/uL (0.1-1.30); MONOCYTES % (AUTO) 11.8 % (2.0-12.0); NEUTROPHILS # (AUTO) 2.5 K/uL (1.8-8.9); NEUTROPHILS % (AUTO) 64.9 % (43.0-81.0); PLATELET COUNT (AUTO) 263 K/uL (150-450); RED BLOOD CELL COUNT(AUTO) 4.57 MIL/uL (4.5-6.0); WHITE BLOOD COUNT (AUTO) 3.8 K/uL (4.3-11.0)
[2021-07-31 12:39] LABS: CALCIUM, SERUM 9.2 mg/dL (8.5-10.1); CREATININE 1.4 mg/dL (0.6-1.3)
[2021-07-31] MEDS ORDERED: MULT-1141 PO (13:15)
[2021-07-31] MEDS ORDERED: POTASSIUM CHLORIDE 20 MEQ TAB.PRT.SR PO ONE ×2 (13:26→13:30)
[2021-07-31 13:52] LABS: EOSINOPHILS % (MANUAL) 2 % (0-4); LYMPHOCYTES % (MANUAL) 20 % (16-48); MONOCYTES % (MANUAL) 16 % (0-11.0); NEUTROPHILS % (MANUAL) 62 (42-76)
--- NOTE | 2021-07-31 14:12 | NUR ---
PATIENT EATING SANDWICH AT THIS TIME. NO COMPLAINT OF NAUSEA/VOMITING.
--- NOTE | 2021-07-31 15:27 | NUR ---
HOMELESS WAIVER SIGNED BY PATIENT BUT DID NOT WANT TO ACCEPT COPY; DISCHARGE FORM SIGNED BY PATIENT.
[2021-07-31 15:30] VITALS: BP 115/72
== END 2021-07-31 15:41 | disposition home or self-care (01) ==
LOC: ER 11:29
DX: F10.10 Alcohol abuse, uncomplicated (principal); D64.9 Anemia, unspecified; Z79.899 Other long term (current) drug therapy; Y90.4 Blood alcohol level of 80-99 mg/100 ml
CPT/HCPCS: 36415; 80048-TC; 85025-TC; G0480